=== PATIENT | female | born 1940 | race Caucasian/White ===

== ENCOUNTER → 2016-11-04 | Outpatient (CLI) | payer MEDICARE ==
[~2016-11-04] MED LIST: ASPI81TA2 PO; CALC500T32 PO; CETI1TAB14 PO; CYAN10009 PO; DIPH1TAB PO; ESCI10TA PO; FLUT16SP12 NS; GABA-338 PO; LEVO112T41 PO; LOSA25TA9 PO; MECL-103 PO; OXYC1TAB8 PO; PROC10TA PO; PYRI250T8; SALINE FLUSH 10ml SYRINGE ONE; SUMA50TA PO; VITA1CAP
--- NOTE | 2016-11-04 12:51 | DI ---
Indication: ITS.REASON: C20 RECTUM CA PROCEDURE: NM BONE SCAN, WHOLE BODY: Encounter: Subsequent Comparison: CT pelvis dated March 14, 2014 Technique: 26.8 mCi of Tc-99m MDP was administered intravenously. Anterior and posterior planar whole-body and spot images were obtained. FINDINGS: The scan demonstrates the expected normal biodistribution for the radiotracer. There is probable degenerative uptake seen in the knees, left wrist and right midfoot. There is uptake in the sacrum bilaterally. IMPRESSION: No definite evidence of metastatic disease to the skeleton. Increased uptake in the sacrum could be due to insufficiency fracture or degenerative change. Isolated metastatic disease is felt to be less likely. CT or MRI of the pelvis could be helpful for further evaluation. .
== END ==
LOC: IMA 08:42
PROVIDERS: ATTEND Internal Medicine Hematology & Oncology
DX: C20 Malignant neoplasm of rectum (principal); R94.8 Abnormal results of function studies of other organs and systems
CPT/HCPCS: 78306; A9503; J1642